=== PATIENT | male | born 1965 | race Caucasian/White ===

== ENCOUNTER 2017-04-01 10:03 | Emergency (ER) | payer BC ==
--- NOTE | 2017-04-01 10:25 | EDM.PDOC ---
ED HPI GENERAL MEDICAL PROBLEM - General Chief Complaint: ENT Problem Stated Complaint: FOREIGN OBJECT IN LEFT EAR Time Seen by Provider: 04/01/17 10:20 Source of Information: Reports: Patient History Limitations: Reports: No Limitations - History of Present Illness INITIAL COMMENTS - FREE TEXT/NARRATIVE: 51-year-old male presents to the ED with foreign body in his left ear. He is aware that the end of his ear buds broke off and are in his ear canal. He had difficulty sleeping due to pain in that ear all night. Had to sleep on the opposite side. When he arrived to the ED the nurse was able to see the piece of your blood Wednesday in the ear canal and removed with a forceps. It is a soft Silastic type of plastic . 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 (see below) (None.) Left Ear Pain Score (Numeric/FACES): 3 - Related Data Allergies Allergy/AdvReac Type Severity Reaction Status Date / Time No Known Allergies Allergy Verified 04/01/17 10:11 Home Meds: Home Meds Gentamicin [Garamycin 0.3% Ophth Soln] 15 ml EARLF TID #1 bottle 04/01/17 [Rx] Past Medical History - Past Surgical History HEENT Surgical History: Reports: Myringotomy w Tube(s) (2 in the past) Social & Family History - Living Situation & Occupation Occupation: Employed ED ROS ENT - Review of Systems Review Of Systems: See Below Constitutional: Reports: No Symptoms HEENT: Reports: Ear Pain Respiratory: Reports: No Symptoms (Left side with foreign body sensation. He knows that the piece of his ear buds broke off in has remained within his left ear canal. It up with the discomfort all night long and came to the ED this morning to have it removed.) Cardiovascular: Reports: No Symptoms Endocrine: Reports: No Symptoms GI/Abdominal: Reports: No Symptoms : Reports: No Symptoms Musculoskeletal: Reports: No Symptoms Skin: Reports: No Symptoms Neurological: Reports: No Symptoms Psychiatric: Reports: Hallucinations Hematologic/Lymphatic: Reports: No Symptoms ED EXAM, ENT - Physical Exam Exam: See Below Exam Limited By: No Limitations General Appearance: Alert, WD/WN, No Apparent Distress Ears: Canal Foreign Body (Removed by the nurse and it is lying on the counter. Is a Silastic end of the ear buds. The ear canal however shows excoriation particularly anterior aspect and the floor of the ear canal. There is evidence of scarring in the tympanic membrane from previous surgeries 2. No other signs of infection are evident.) Course - Vital Signs Last Recorded V/S: Last Vital Signs Temp 36.4 C 04/01/17 10:09 Pulse 70 04/01/17 10:09 Resp 17 04/01/17 10:09 BP 122/83 04/01/17 10:09 Pulse Ox 98 04/01/17 10:09 - Radiology Interpretation Free Text/Narrative:: 51-year-old male presents the ED for removal of a piece of his ear buds from his left ear. They were in all night long and causing pain and inability to sleep on this left side. The piece of Silastic plastic was removed easily with forceps. There is an excoriation and breakdown of the anterior aspect of the ear canal and therefore going to place him on gentamicin eardrops 2 drops 3 times daily for the next 5 days to prevent any secondary infection. Will follow- up if any further problems occur. Departure - Departure Time of Disposition: 10:20 Disposition: Home, Self-Care 01 Condition: Fair Clinical Impression: Foreign body in left ear, initial encounter Otitis externa Qualifiers: Noninfectious otitis externa type: contact Chronicity: acute Laterality: left - Discharge Information Prescriptions: Gentamicin [Garamycin 0.3% Ophth Soln] 15 ml EARLF TID #1 bottle Referrals: PCP,None [Primary Care Provider] - Forms: ED Department Discharge Additional Instructions: Evaluation the emergency room today in regards to form body in the left ear canal. Nurse was able to remove it with a set of forceps. It is the end of the ear buds. There is excoriation or abrasion of the left ear canal anteriorly. Therefore I switched suggest use of gentamicin eardrops 2 drops to the ear 3 times daily for the next 5 days to prevent any secondary infection of the canal. After application of the drops in try and lay on your opposite side for about 5 minutes to allow the drops to soak into the appropriate area.
== END 2017-04-01 10:36 | disposition home or self-care (01) ==
LOC: JD.ED 10:03
DX: T16.2XXA Foreign body in left ear, initial encounter (principal); H60.532 Acute contact otitis externa, left ear; X58.XXXA Exposure to other specified factors, initial encounter
CPT/HCPCS: 69200; 99283; 99283-25

== ENCOUNTER 2018-09-28 09:15 | Emergency (ER) | payer BC ==
[2018-09-28] MEDS ORDERED: HYDROmorphone 1 MG/ML Syringe IM ONE (09:56)
--- NOTE | 2018-09-28 10:08 | EDM.PDOC ---
ED HPI GENERAL MEDICAL PROBLEM - General Chief Complaint: Lower Extremity Injury/Pain Stated Complaint: RIGHT FOOT INJURY,20LB WEIGHT DROPPED ON FOOT Time Seen by Provider: 09/28/18 10:00 Source of Information: Reports: Patient History Limitations: Reports: No Limitations - History of Present Illness INITIAL COMMENTS - FREE TEXT/NARRATIVE: 53-year-old male presents for evaluation and treatment of injury to the right foot. Patient reports he was at [facility] and dropped 25 lb. weight on the dorsal aspect of his right foot. Injury occurred prior to arrival in the ER. Patient estimates that the weight fell maybe 3 feet. He is reporting numbness and significant pain to the foot. Has been unable to bear weight. He did drive himself here. Onset: Today Right Foot Pain Score (Numeric/FACES): 10 - Related Data Allergies Allergy/AdvReac Type Severity Reaction Status Date / Time No Known Allergies Allergy Verified 09/28/18 09:37 Home Meds: Home Meds Acetaminophen/oxyCODONE [Percocet 325-5 MG] 1 tab PO Q4HR PRN #20 tab 09/28/18 [ Rx] Fish Oil/DHA/EPA [Fish Oil 1,200 MG] 1,200 mg PO DAILY 09/28/18 [History] Multivitamin with Minerals [Multiple Vitamin] 1 tab PO DAILY 09/28/18 [History] Vit A/C/E AC/Znox/Cupric Oxide [Eye Vitamin-Minerals Tablet] 1 tab PO DAILY [History] Past Medical History - Past Health History Medical/Surgical History: Denies Medical/Surgical History - Past Surgical History HEENT Surgical History: Reports: Myringotomy w Tube(s) (2 in the past) Social & Family History - Caffeine Use Caffeine Use: Reports: Coffee - Living Situation & Occupation Occupation: Employed Review of Systems - Review of Systems Review Of Systems: See Below Musculoskeletal: Reports: Foot Pain (right) Neurological: Reports: Numbness (right foot), Tingling (right foot), Difficulty Walking ED EXAM, GENERAL - Physical Exam Exam: See Below Exam Limited By: No Limitations General Appearance: Alert, WD/WN, No Apparent Distress Respiratory/Chest: No Respiratory Distress Cardiovascular: Normal Peripheral Pulses Peripheral Pulses: 3+: Posterior Tibial (L), Posterior Tibial (R), Dorsalis Pedis (L), Dorsalis Pedis (R) Extremities: Normal Capillary Refill, Other (swelling to the dorsal right foot; pain to the medial right foot over the first metatarsals; no pain to the medial and lateral malleolus) Neurological: Alert, Oriented, Normal Cognition Psychiatric: Normal Affect, Normal Mood Skin Exam: Warm, Dry, Normal Color. No: Ecchymosis, Erythema Course - Vital Signs Last Recorded V/S: Last Vital Signs Temp 99.4 F 09/28/18 11:54 Pulse 80 09/28/18 11:54 Resp 18 09/28/18 11:54 BP 119/86 09/28/18 11:54 Pulse Ox 99 09/28/18 11:54 - Orders/Labs/Meds Orders: Active Orders 24 hr Category Date Time Status Durable Medical Equipment for Discharge [DME for Oth 09/28/18 11:21 Ordered Discharge] [COMM] Stat Meds: Medications Discontinued Medications Generic Name Dose Route Start Last Admin Trade Name Freq PRN Reason Stop Dose Admin Hydromorphone HCl 1 mg 09/28/18 09:56 09/28/18 11:25 Dilaudid IM 09/28/18 09:57 Not Given ONETIME ONE Ketorolac Tromethamine 60 mg 09/28/18 11:41 09/28/18 11:45 Toradol IM 09/28/18 11:42 60 mg ONETIME ONE Administration - Radiology Interpretation Free Text/Narrative:: Right foot: Three views of the right foot were obtained. Comparison: No previous study. Fracture is seen within the first metatarsal. Transverse fracture line is seen as well as longitudinal fracture line extending down the distal shaft of the metatarsal. Minimal displacement is seen. Bunion deformity is present. Very small plantar spur and very small spur at the attachment of the Achilles tendon to the calcaneus. Deformity is noted within the base of the proximal phalanx of the third digit compatible with old injury. No other acute fracture is seen. Impression: 1. First metatarsal fracture as described above. 2. Bunion deformity and minimal calcaneal spurs. 3. Old fracture within the proximal phalanx of the third toe as noted above. CT right foot Technique: Multiple axial sections were obtained through the right foot. Reconstructed coronal and sagittal images were reviewed. Comparison: Previous right foot radiographic study performed earlier on the same day (9:51 AM) Findings: Comminuted fracture is noted within the shaft of the first metatarsal. Mild displacement is seen up to 4 mm. Bunion deformity is noted. Degenerative change is seen within the first MTP joint. No additional fracture is seen. Small calcaneal spurs are noted. Impression: 1. Comminuted fracture within the shaft of the first metatarsal with displacement up to 4 mm. 2. Other incidental findings as noted above. No other acute abnormality is appreciated. - Re-Assessments/Exams Free Text/Narrative Re-Assessment/Exam: 09/28/18 11:11 Dr. Breaux has come to the ED and evaluated the CT and x-rays. Recommended walking boot and crutches. Follow-up clinic next Wednesday. We attempted to call over to Dr. Lazcano's office for appointment but nobody was available for scheduling. Will give phone number. Will discharge home. Discharge instructions as documented. Departure - Departure Time of Disposition: 11:13 Disposition: Home, Self-Care 01 Condition: Fair Clinical Impression: Fracture of first metatarsal bone - Discharge Information *PRESCRIPTION DRUG MONITORING PROGRAM REVIEWED*: No *COPY OF PRESCRIPTION DRUG MONITORING REPORT IN PATIENT SINCERE: No Prescriptions: Acetaminophen/oxyCODONE [Percocet 325-5 MG] 1 tab PO Q4HR PRN #20 tab PRN Reason: Pain Instructions: Metatarsal Fracture Referrals: PCP,None [Primary Care Provider] - Anupam Breaux MD [Physician] - Forms: ED Department Discharge Additional Instructions: you were given medication that can affect your ability to drive and operate machinery. Do not drive or operate machinery within 10 hours of taking perception narcotic pain medication. It is not recommend that you drive while you have the walking boot on. Wear the walking boot at all times, may remove for showering. Nonweightbearing and use crutches. Ice the foot as much as possible. Elevate the foot as much as possible. may take [id number] ibuprofen as needed for pain. Do not take more than 3200 mg of ibuprofen in 1 day. For pain not relieved by ibuprofen you may take Percocet 1 or 2 tabs every 4-6 hours. Percocet is habit-forming, take as few these as needed to control your pain. Do not drive or operate machinery within 10 hours of taking Percocet. Follow-up with Dr. Breaux Wednesday through next week. Please call to schedule an appointment with him. Please return to the ER if your symptoms change or worsen. - My Orders Last 24 Hours: My Active Orders 09/28/18 11:21 Durable Medical Equipment for Discharge [DME for Discharge] [COMM] Stat - Assessment/Plan Last 24 Hours: My Active Orders 09/28/18 11:21 Durable Medical Equipment for Discharge [DME for Discharge] [COMM] Stat
--- NOTE | 2018-09-28 10:30 | CR ---
Right foot: Three views of the right foot were obtained. Comparison: No previous study. Fracture is seen within the first metatarsal. Transverse fracture line is seen as well as longitudinal fracture line extending down the distal shaft of the metatarsal. Minimal displacement is seen. Bunion deformity is present. Very small plantar spur and very small spur at the attachment of the Achilles tendon to the calcaneus. Deformity is noted within the base of the proximal phalanx of the third digit compatible with old injury. No other acute fracture is seen. Impression: 1. First metatarsal fracture as described above. 2. Bunion deformity and minimal calcaneal spurs. 3. Old fracture within the proximal phalanx of the third toe as noted above. Diagnostic code #3
--- NOTE | 2018-09-28 11:14 | CT ---
CT right foot Technique: Multiple axial sections were obtained through the right foot. Reconstructed coronal and sagittal images were reviewed. Comparison: Previous right foot radiographic study performed earlier on the same day (9:51 AM) Findings: Comminuted fracture is noted within the shaft of the first metatarsal. Mild displacement is seen up to 4 mm. Bunion deformity is noted. Degenerative change is seen within the first MTP joint. No additional fracture is seen. Small calcaneal spurs are noted. Impression: 1. Comminuted fracture within the shaft of the first metatarsal with displacement up to 4 mm. 2. Other incidental findings as noted above. No other acute abnormality is appreciated. Diagnostic code #3
[2018-09-28] MEDS ORDERED: Ketorolac 60 MG/2 ML SDV IM ONE (11:41)
== END 2018-09-28 11:55 | disposition home or self-care (01) ==
LOC: JD.ED 09:15
DX: S92.311A Displaced fracture of first metatarsal bone, right foot, initial encounter for closed fracture (principal); W20.8XXA Other cause of strike by thrown, projected or falling object, initial encounter; Y92.838 Other recreation area as the place of occurrence of the external cause; Z79.899 Other long term (current) drug therapy
CPT/HCPCS: 73630; 73700; 96372; 99284; J1885; 99283

== ENCOUNTER 2020-02-20 08:01 | Day surgery (SDC) | payer BC ==
--- NOTE | 2020-02-20 08:09 | PCM.PREANE ---
Preanesthetic Assessment - Procedure Proposed Procedure: cataract left - Anesthesia/Transfusion/Family Hx Anesthesia History: Prior Anesthesia Without Reaction Family History of Anesthesia Reaction: No Transfusion History: No Prior Transfusion(s) - Review of Systems General: No Symptoms Pulmonary: No Symptoms Cardiovascular: No Symptoms Gastrointestinal: No Symptoms Neurological: No Symptoms Other: Reports: None - Physical Assessment NPO Status Date: 02/19/20 NPO Status Time: 20:00 Vital Signs: 98% 72 16 138/76 Height: 5 ft 7 in Weight: 78.925 kg ASA Class: 2 Mental Status: Alert & Oriented x3 Airway Class: Mallampati = 1 Dentition: Reports: Dentures (top and bottom) Thyro-Mental Finger Breadths: 3 Mouth Opening Finger Breadths: 3 ROM/Head Extension: Full Lungs: Clear to Auscultation, Normal Respiratory Effort Cardiovascular: Regular Rate, Regular Rhythm - Allergies Allergies/Adverse Reactions: Allergies Allergy/AdvReac Type Severity Reaction Status Date / Time No Known Allergies Allergy Verified 02/19/20 13:06 - Blood Blood Available: No - Acknowledgements Anesthesia Type Planned: MAC Pt an Appropriate Candidate for the Planned Anesthesia: Yes Alternatives and Risks of Anesthesia Discussed w Pt/Guardian: Yes Pt/Guardian Understands and Agrees with Anesthesia Plan: Yes PreAnesthesia Questionnaire - Past Health History Medical/Surgical History: Denies Medical/Surgical History Cardiovascular History: Reports: Heart Murmur Respiratory History: Reports: None Gastrointestinal History: Reports: None Musculoskeletal History: Reports: Fracture Neurological History: Reports: Concussion - Past Surgical History HEENT Surgical History: Reports: Myringotomy w Tube(s) (2 in the past), Other (See Below) (lazy eye child) Musculoskeletal Surgical History: Reports: Other (See Below) (right elbow) - SUBSTANCE USE Tobacco Use Status *Q: Former Tobacco User Tobacco Use Within Last Twelve Months: No Second Hand Smoke Exposure: No Days Per Week of Alcohol Use: 0 Recreational Drug Use History: No - HOME MEDS Home Medications: Home Meds . [No Known Home Meds] 02/19/20 [History] - CURRENT (IN HOUSE) MEDS Current Meds: Current Medications Brimonidine Tartrate (Alphagan 0.2% Ophth Soln) 0 ml EYELF ASDIRECTED MATTHEW Stop: 02/20/20 18:00 Cefuroxime Sodium (Zinacef) 0 mg EYELF ASDIRECTED MATTHEW Stop: 02/20/20 18:00 Lidocaine HCl (Xylocaine-Mpf 1%) 0 ml INJECT ASDIRECTED MATTHEW Stop: 02/20/20 18:00 Phenylephrine HCl (Juan-Synephrine 2.5% Oph Soln) 0 ml EYELF ASDIRECTED MATTHEW Stop: 02/20/20 18:00 Pilocarpine HCl (Pilocar 4% Ophth Soln) 0 ml EYELF ASDIRECTED MATTHEW Stop: 02/20/20 18:00 Polymyxin/Trimethoprim Sulfate (Polytrim Ophth Soln) 0 ml EYELF ASDIRECTED MATTHEW Stop: 02/20/20 18:00 Tetracaine HCl (Tetracaine 0.5% Steri-Unit Gisel) 0 ml EYEBOTH ASDIRECTED MATTHEW Stop: 02/20/20 18:00 Tropicamide (Mydriacyl 1% Oph Soln) 0 ml EYELF ASDIRECTED MATTHEW Stop: 02/20/20 18:00
[2020-02-20] MEDS: Phenylephrine 2.5% Ophth Soln 2 ML Bot EYELF SCH ×6 (08:19→09:32)
[2020-02-20] MEDS: Pilocarpine 4% Ophth Soln 15 ML Bot EYELF SCH ×2 (08:20→09:49)
[2020-02-20] MEDS: Lidocaine 1% PF 2 ML SDV INJECT SCH ×2 (08:20→09:37)
[2020-02-20] MEDS: Cefuroxime 10 MG/ML SYRINGE EYELF SCH ×2 (08:20→09:48)
[2020-02-20] MEDS: Brimonidine 0.2% Ophth Soln 5 ML Bottle EYELF SCH ×4 (08:20→09:49)
[2020-02-20] MEDS: Tetracaine HCl/PF 0.5% 4 ML Bottle EYEBOTH SCH ×3 (08:20→09:37)
[2020-02-20] MEDS: Polymyxin B/Trimethoprim 10 ML Bottle EYELF SCH ×4 (08:21→09:49)
[2020-02-20] MEDS: Tropicamide 1% Ophth Soln 15 ML Bottle EYELF SCH ×4 (08:40→09:16)
--- NOTE | 2020-02-20 09:51 | PCM48HPAN ---
Post Anesthesia Note - EVALUATION WITHIN 48HRS OF ANESTHETIC Vital Signs in Normal Range: Yes Patient Participated in Evaluation: Yes Respiratory Function Stable: Yes Airway Patent: Yes Cardiovascular Function Stable: Yes Hydration Status Stable: Yes Pain Control Satisfactory: Yes Nausea and Vomiting Control Satisfactory: Yes Mental Status Recovered: Yes Vital Signs: Last Vital Signs Temp 36.6 C 02/20/20 08:00 Pulse 76 02/20/20 08:00 Resp 16 02/20/20 08:00 BP 138/76 02/20/20 08:00 Pulse Ox 98 02/20/20 08:00
== END 2020-02-20 10:06 | disposition home or self-care (01) ==
LOC: JD.SDS 08:01
PROVIDERS: ATTEND Ophthalmology
DX: H25.813 Combined forms of age-related cataract, bilateral (principal); H16.223 Keratoconjunctivitis sicca, not specified as Sjogren's, bilateral; H16.103 Unspecified superficial keratitis, bilateral; Z87.891 Personal history of nicotine dependence
CPT/HCPCS: 66984; J0697; J2001; V2632

== ENCOUNTER 2025-04-09 02:51 | Emergency (ER) | payer BC ==
[2025-04-09] MEDS ORDERED: Sodium Chloride 0.9% 10 ML Syringe FLUSH PRN (03:11)
[2025-04-09 03:16] LABS: BASOPHILS ABSOLUTE AUTO 0.0 K/mm3 (0.0-0.2); BASOPHILS PERCENT AUTO 0.3 % (0.0-1.0); EOSINOPHILS ABSOLUTE AUTO 0.0 K/mm3 (0.0-0.4); EOSINOPHILS PERCENT AUTO 0.1 % (0.0-6.0); IMMATURE GRAN ABSOLUTE AUTO 0.02 K/mm3 (0.00-0.05); IMMATURE GRAN PERCENT AUTO 0.3 % (0.0-0.4); LYMPHOCYTES ABSOLUTE AUTO 0.4 K/mm3 (1.0-4.8); LYMPHOCYTES PERCENT AUTO 4.8 % (24.0-44.0); MEAN PLATELET VOLUME 9.6 fl (9.4-12.4); MONOCYTES ABSOLUTE AUTO 0.4 K/mm3 (0.0-0.8); MONOCYTES PERCENT AUTO 5.1 % (0.0-8.0); NEUTROPHILS ABSOLUTE AUTO 6.7 K/mm3 (1.8-7.7); NEUTROPHILS PERCENT AUTO 89.4 % (41.0-71.0); NRBC ABSOLUTE 0.00 (0.00-0.02); NRBC PERCENT 0.0 % (0.0-0.2); PLATELET COUNT,PLT 168 K/mm3 (150-400); RED BLOOD CELL COUNT 5.35 M/mm3 (4.52-5.90); WHITE BLOOD CELL COUNT,WBC 7.48 K/mm3 (3.9-11.3)
[2025-04-09] MEDS: Ondansetron 4 MG/2 ML SDV IVPUSH ONE (03:16)
[2025-04-09 03:25] LABS: APPEARANCE,URINE CLEAR (Clear); GLUCOSE,URINE NEGATIVE (Negative); OCCULT BLOOD,URINE TRACE-LYSED (Negative)
[2025-04-09 03:29] LABS: A/G RATIO 0.8 (1-2); ALANINE AMINOTRANSFERASE,ALT 36.0 U/L (16-63); BILIRUBIN TOTAL 0.8 mg/dL (0.2-1.0); BLOOD UREA NITROGEN,BUN 18.0 mg/dL (7-18); CARBON DIOXIDE,CO2 26.0 mEq/L (21-32); CHLORIDE,CL 104.0 mEq/L (98-107); CREATININE 0.9 mg/dL (0.7-1.3); EST CRCL DRUG DOSING (CG) 83.65 mL/min; ESTIMATED GFR 99.0 mL/min (>60); GLUCOSE RANDOM 140.0 mg/dL (70-99); PROTEIN TOTAL,TP 7.4 g/dl (6.4-8.2); SODIUM,NA 141.0 mEq/L (136-145)
[2025-04-09] MEDS: Iopamidol 612 MG/ML 100 ML Bottle IVPUSH ONE (03:34)
[2025-04-09] MEDS: Sodium Chloride 0.9% 10 ML Syringe FLUSH PRN (03:34)
[2025-04-09 03:53] LABS: POTASSIUM,K 4.3 mEq/L (3.5-5.1)
[2025-04-09 03:54] LABS: ASPARTATE AMNIOTRANSFERASE,AST 28.0 U/L (15-37)
[2025-04-09 03:56] LABS: EPITHELIAL CELLS,URINE 0-5 /hpf (0-5)
== END 2025-04-09 04:52 | disposition home or self-care (01) ==
LOC: JD.ED 02:51
DX: A08.4 Viral intestinal infection, unspecified (principal); E86.0 Dehydration; Z87.891 Personal history of nicotine dependence
CPT/HCPCS: 36415; 74177; 80053; 81001; 83690; 85025; 96361; 96374; 96375; 99284; J2405; J7030; Q9967; J1171